=== PATIENT | male | born 1945 | race Caucasian/White ===

== ENCOUNTER → 2018-07-18 | Outpatient (CLI) | payer MEDICARE ==
[2015-08-17 12:00] VITALS: BP 124/74
[~2018-07-18] MED LIST: ASPI-612 PO; CARB15DR3 EACHEYE; DOCU-109 PO; ERTA1VIA IJ; LISI1TAB5 PO; METO25TA4 PO; MULT1TAB52 PO; OXYC1TAB7 PO; PRAV10TA2 PO
--- NOTE | 2018-07-18 09:53 | RAD ---
MR#: [id number] Date of Study: 07/18/2018 Ordering Physician: SANTIAGO RUANO, Referring Physician: SANTIAGO RUANO, Tech: Brandi Cantrell RDMS, RVT, RTR APPROVED REPORT Patient Location: OUT-PATIENT Indications AAA Duplex Results A/PTransverseLongitudinal Proximal Aorta 1.9cm2.3cm Mid Aorta 2.1cm2cm Distal Aorta 4.0cm4cm Rt. Common Iliac Artery1.29cm Lt. Common Iliac Artery 1.3cm Doppler VelocityWaveform Proximal Aorta 88.3 cm/sec Distal Aorta 97.0 cm/sec Rt. Common Iliac Zxiwqy483.6 cm/sec Lt. Common Iliac Artery 118.2 cm/sec Findings Technically difficult study due to bowel gas and body habitus. There is a distal infra-renal AAA that measures approximately 4 cm in greatest transverse dimension. Spectral waveforms in the aorta and velocities are grossly unremarkable. Critical Notification Critical Value: No <Conclusion> 1. Infrarenal AAA measuring 4.0 cm. Signed by : Abdon Clement, Electronically Approved : 07/18/2018 09:51:58
== END | disposition home or self-care (01) ==
LOC: US 08:43
PROVIDERS: ATTEND Internal Medicine Cardiovascular Disease
DX: I71.4 Abdominal aortic aneurysm, without rupture (principal); I10 Essential (primary) hypertension; E78.5 Hyperlipidemia, unspecified; E78.00 Pure hypercholesterolemia, unspecified; Z82.49 Family history of ischemic heart disease and other diseases of the circulatory system
CPT/HCPCS: 76770

== ENCOUNTER → 2018-10-31 | Day surgery (SDC) | payer MEDICARE ==
[~2018-10-31] VITALS: Ht 170.2 cm; Wt 86.0 kg
[~2018-10-31] MED LIST changes: +BUPIVACAINE 0.25% 50 ML VIAL. ONE; +BUPIVACAINE MPF 0.25% 30 ML VIAL. IJ ONE; +HYDROmorphone 2 MG/ML VIAL IV PRN; +IV RINGERS,LACTATED 1000ML 1,000 ML IV SCH; +LIDOCAINE 1% PF 2 ML VIAL. ID PRN; +MIDAZOLAM HCL/PF 2 MG/2 ML VIAL. ONE; +MORPHINE SULFATE 2 MG/ML VIAL. IV PRN; +ONDANSETRON PF 4 MG/2 ML VIAL. IV PRN; +PRED50TA PO; +PROCHLORPERAZINE 10 MG/2 ML VIAL. IV PRN; +PROP15DR OP; +fentaNYL PF VIAL 100 MCG/2 ML VIAL IV PRN; +fentaNYL PF VIAL 250 MCG/5 ML VIAL ONE
--- NOTE | 2018-10-31 11:06 | PDOC4 ---
Operative Note Operative Note Date: 10/31/2018 Preoperative diagnosis: Temporal arteritis Postoperative diagnosis: Same Procedure: Temporal artery biopsy right side Surgeon: Santino Specimen: Temporal artery Dictation: Patient is a 73-year-old gentleman who's had right sided headaches and jaw pain and elevated sedimentation rate concerning for arteritis. Procedure of temporal artery biopsy was explained to the patient in detail risks and benefits also discussed including bleeding infection alternatives to this procedure also discussed with the patient is seemed understandable verbal 1 written consent had a procedure performed. Patient was taken to the operating room placed in supine position and IV sedation was initiated by anesthesia once patient was brought was stated his right temporal area is prepped and draped usual sterile fashion is Betadine scrub and solution. The right temporal area was scanned with a Doppler artery was heard over this area was injected with quarter percent Marcaine plain incision was made with a 15 blade scalpel was carried down through the subcutaneous tissues electrocautery and hemostasis. Once the artery was visualized it was controlled proximally distally with mosquito clamps the section of the artery in between was excised and sent for pathology the 2 ends were controlled with silk ligatures. Wound was then closed in a single layer running 4-0 subcuticular Monocryl Mastisol Steri-Strips and island dressings were applied. Patient was awakened from his sedation taken to recovery in stable condition all sponge instrument needle awake overnight counselor status correct S1 blood loss 10 mL WHITNEY CAMARILLO MD Oct 31, 2018 11:06
--- NOTE | 2018-10-31 11:07 | DISCH ---
DISCHARGE INSTRUCTIONS Condition on Discharge Condition on Discharge: Stable Activity After Discharge Activity Instructions for Disc: Activity as tolerated Other activity instructions: May shower in 24 hours Diet after Discharge Diet after Discharge: Regular Diet Texture: Regular Contacting the DRRegino after DC Call your doctor for: If your condition worsens Follow-Up Follow up with: Dr. Camarillo in 2 weeks Treatment/Equipment after DC Adaptive Equipment Issued: None WHITNEY CAMARILLO MD Oct 31, 2018 11:07
[2018-10-31 12:20] VITALS: BP 139/70
--- NOTE | 2018-11-01 18:07 | PATHOLOGY ---
[facility] Accession Number: [id number] . 01 Material submitted: . RIGHT TEMPORAL ARTERY BIOPSY . 01 Clinical history: . Arteritis. . 02 Diagnosis: Right temporal artery biopsy: - No significant pathologic abnormalities. . ([facility]:mm; 11/01/18) [facility]/11/01/2018 . 02 Comment: There is no evidence of temporal arteritis. . ([facility]:mm; 11/01/18) . 02 Electronically signed: . Johnathan Butts MD, Pathologist NPI- [id number] . 01 Gross description: . Received in formalin labeled "Geovany Ovalles, right temporal artery biopsy" is an irregular fragment of pink-coy soft tissue measuring 0.4 x 0.3 x 0.2 cm. The specimen is submitted in toto in cassette A1 for temporal artery sectioning. ([facility] [place]; 10/31/2018) SYC/SYC . 02 Pathologist provided ICD-10: I77.6 . 02 CPT . 620350 Specimen Comment: A courtesy copy of this report has been sent to Specimen Comment: [phone], . Specimen Comment: Report sent to / DR ANDINO Performed at: 01 [facility] [address], [place], [place] [id number] MD Micheal Paz MD Phone: [phone] Performed at: 02 [facility] [place] [address] [place], [place] [id number] MD Johnathan Butts MD Phone: [phone]
== END | disposition home or self-care (01) ==
LOC: SURG 08:08
PROVIDERS: ATTEND Surgery
DX: M31.6 Other giant cell arteritis (principal); I10 Essential (primary) hypertension; K21.9 Gastro-esophageal reflux disease without esophagitis; E78.5 Hyperlipidemia, unspecified; I71.4 Abdominal aortic aneurysm, without rupture; Z90.49 Acquired absence of other specified parts of digestive tract; Z96.642 Presence of left artificial hip joint; Z98.890 Other specified postprocedural states; Z82.49 Family history of ischemic heart disease and other diseases of the circulatory system; F17.210 Nicotine dependence, cigarettes, uncomplicated
CPT/HCPCS: 37609; J0690; J2250; J3010; J3490

== ENCOUNTER → 2019-04-03 | Outpatient (CLI) | payer MEDICARE ==
[2018-10-31 12:20] VITALS: BP 139/70
[~2019-04-03] MED LIST changes: -BUPIVACAINE 0.25% 50 ML VIAL. ONE; -BUPIVACAINE MPF 0.25% 30 ML VIAL. IJ ONE; -HYDROmorphone 2 MG/ML VIAL IV PRN; -IV RINGERS,LACTATED 1000ML 1,000 ML IV SCH; -LIDOCAINE 1% PF 2 ML VIAL. ID PRN; -MIDAZOLAM HCL/PF 2 MG/2 ML VIAL. ONE; -MORPHINE SULFATE 2 MG/ML VIAL. IV PRN; -ONDANSETRON PF 4 MG/2 ML VIAL. IV PRN; -PROCHLORPERAZINE 10 MG/2 ML VIAL. IV PRN; +REGADENOSON 0.4 MG/5 ML DISP.SYRIN. IV ONE; -fentaNYL PF VIAL 100 MCG/2 ML VIAL IV PRN; -fentaNYL PF VIAL 250 MCG/5 ML VIAL ONE
--- NOTE | 2019-04-03 09:15 | CARD ---
MR#: [id number] Date of Study: 04/03/2019 Ordering Physician: SANTIAGO RUANO, Referring Physician: SANTIAGO RUANO Tech: Charity Pressley RDCS APPROVED REPORT EXAM: Two-dimensional and M-mode echocardiogram with Doppler and color Doppler. Other Information Quality : GoodHR: 55bpm Rhythm : Bradycardia INDICATION Hypertension/HCVD 2D DIMENSIONS RVDd2.9 (2.9-3.5cm)Left Atrium(2D)3.3 (1.6-4.0cm) IVSd1.0 (0.7-1.1cm)Aortic Root(2D)3.5 (2.0-3.7cm) LVDd4.6 (3.9-5.9cm)LVOT Diameter2.5 (1.8-2.4cm) PWd0.9 (0.7-1.1cm)LVDs3.3 (2.5-4.0cm) FS (%) 28.5 %SV54.8 ml LVEF(%)55.0 (>50%) M-Mode DIMENSIONS Left Atrium(MM)3.12 (2.5-4.0cm)Aortic Root3.58 (2.2-3.7cm) Aortic Valve AoV Peak Devyn.117.2cm/sAoV VTI22.2cm AO Peak GR.5.5mmHgLVOT Peak Devyn.102.0cm/s AO Mean GR.3mmHgAVA (VMAX)4.32cm2 ANNEL (VTI)4.00cm2 Mitral Valve MV E Rlpgolfk55.7cm/sMV E Peak Gr.2mmHg MV DECEL [id number] A Fxtasere88.5cm/s MV E Mean Gr.1mmHgE/A Ratio1.1 Pulmonary Valve PV Peak Ovgnvxlr33.2cm/s LEFT VENTRICLE The left ventricle is normal size. There is mild concentric left ventricular hypertrophy. The left ve ntricular systolic function is normal and the ejection fraction is within normal range. The Ejection Fraction is 55%. There is normal LV segmental wall motion. Transmitral Doppler flow pattern is abnorm al. RIGHT VENTRICLE The right ventricle is normal size. There is normal right ventricular wall thickness. The right ventr icular systolic function is normal. ATRIA The left atrium size is normal. The right atrium size is normal. The interatrial septum is intact wit h no evidence for an atrial septal defect or patent foramen ovale as noted on 2-D or Doppler imaging. AORTIC VALVE The aortic valve is mildly calcified. The aortic valve is trileaflet. Doppler and Color Flow revealed no significant aortic regurgitation. There is no significant aortic valvular stenosis. There is no a ortic valvular vegetation. MITRAL VALVE The mitral valve is normal in structure and function. There is no evidence of mitral valve prolapse. There is no mitral valve stenosis. Doppler and Color Flow revealed no mitral valve regurgitation note d. TRICUSPID VALVE The tricuspid valve is normal in structure and function. Doppler and Color Flow revealed no tricuspid valve regurgitation noted. There is no tricuspid valve prolapse or vegetation. There is no tricuspid valve stenosis. PULMONIC VALVE Doppler and Color Flow revealed no pulmonic valvular regurgitation. There is no pulmonic valvular aria nosis. GREAT VESSELS The aortic root is normal in size. The ascending aorta is normal in size. The IVC is normal in size a nd collapses >50% with inspiration. PERICARDIAL EFFUSION There is no evidence of significant pericardial effusion. Critical Notification Critical Value: No <Conclusion> The left ventricular systolic function is normal and the ejection fraction is within normal range. Th e Ejection Fraction is 55%. There is normal LV segmental wall motion. Signed by : Abdon Clement, Electronically Approved : 04/03/2019 09:15:18
--- NOTE | 2019-04-03 13:20 | RAD ---
MR#: [id number] Date of Study: 04/03/2019 Ordering Physician: SANTIAGO RUANO Referring Physician: MOHSEN GARCIA Tech: NATALY Osborne APPROVED REPORT Test Type: Pharmacological Stress Nurse/Tech: Gladys Duron R.N. Test Indications: syncope Cardiac History: smoker,htn Medications: See Electronic Medical Record Medical History: See Electronic Medical Record Resting ECG: SR Resting Heart Rate: 56 bpm Resting Blood Pressure: 108/53mmHg Pretest Chest Pain: No chest pain Nurse/Tech Notes S1S2, lungs CTA Consent: The procedure was explained to the patient in lay terms. Informed consent was witnessed. Mathew eout was entered into [employer]. History and Stress Test performed by NATALY Osborne Pharm. Details Pharmacologic stress testing was performed using 0.4mg per 5ml of regadenoson given intravenously ove r 7-10 seconds. Stress Symptoms dyspnea POST EXERCISE Reason for Termination: Infusion complete Max HR: 75 bpm Max Blood Pressure: 104/44mmHg Blood Pressure response to exercise: Normal blood pressure response during stress. Heart Rate response to exercise: wnl Chest Pain: No. Arrhythmia: No. ST Change: No. INTERPRETATION Stress EKG Conclusion: Baseline EKG showed sinus rhythm. No ischemic changes at peak stress. No arr hythmias. Imaging Protocol IMAGE PROTOCOL: Rest Tc-99m/stress Tc-99m 1 day Rest: Stress: Viability: Radiopharm.Tc99m NzawwtmkvLa20f Sestamibi Dose11.1mCi 33mCi Duration 16min. 13min. Img Date 04/03/2019 04/03/2019 Inj-Img Tshj49maj. 60min. Rest Admin Site:IV - Right AntecubitalAdministrator:NATALY Osborne Stress Admin Site: IV - Right AntecubitalAdministrator: MARAH Larios, ARRT (R)(N) STRESS DATA End Diast. Vol.68.0mlLVEDV index BSA35.0ml End Syst. Vol.19.0mlLVESV index BSA10.0ml Myocardial Noen231.0gEject. Cezzizdt64.0% Stress Scores Regional WT1.00Summed WT11.00 Regional WM0.00Summed WM3.00 Study quality was good. Left Ventricular size was Normal at Rest and Stress. Lung uptake was . Left Ventricular ejection fraction is 72%. The rest and stress images show normal perfusion, normal contraction and thickening. LV Perf. Quant 17 Seg. SSS2.00 17 Seg. SRS6.00 17 Seg. SDS0.00 Stress Defect Extent (% LAD)0.00Rest Defect Extent (% LAD)1.30Rev. Defect Extent (% LAD)0.00 Stress Defect Extent (% LCX) 17.50Rest Defect Extent (% LCX)31.30Rev. Defect Extent (% LCX)0.00 Stress Defect Extent (% RCA)0.00Rest Defect Extent (% RCA)0.00Rev. Defect Extent (% RCA)0.00 Stress Defect Extent (% LUPIS)5.00Rest Defect Extent (% LUPIS)8.70Rev. Defect Extent (% LUPIS)0.00 Conclusion 1. Regadenoson cardioisotope stress test did not show any evidence of ischemia or infarct. 2. Normal left ventricular systolic function with ejection fraction calculated at 72%. 3. Low risk for cardiac events. Signed by : Santiago Ruaon, Electronically Approved : 04/03/2019 13:20:11
== END | disposition home or self-care (01) ==
LOC: ECHO 08:33
PROVIDERS: ATTEND Internal Medicine Cardiovascular Disease
DX: I35.8 Other nonrheumatic aortic valve disorders (principal); I11.9 Hypertensive heart disease without heart failure; R00.1 Bradycardia, unspecified; Z87.891 Personal history of nicotine dependence
CPT/HCPCS: 78452; 93017; 93306; A9500; J2785

== ENCOUNTER → 2019-07-17 | Outpatient (CLI) | payer MEDICARE ==
[2018-10-31 12:20] VITALS: BP 139/70
[~2019-07-17] MED LIST changes: -REGADENOSON 0.4 MG/5 ML DISP.SYRIN. IV ONE
--- NOTE | 2019-07-17 11:31 | CARD ---
MR#: [id number] Date of Study: 07/17/2019 Ordering Physician: SANTIAGO PLASCENCIA, Referring Physician: SANTIAGO PLASCENCIA, Tech: Brandi Bailon APPROVED REPORT EXAM: Two-dimensional and M-mode echocardiogram with Doppler and color Doppler. Other Information Quality : AverageHR: 55bpm INDICATION COPD Hypertension/HCVD RISK FACTORS Hyperlipidemia Smoking 2D DIMENSIONS RVDd2.9 (2.9-3.5cm)Left Atrium(2D)2.8 (1.6-4.0cm) IVSd1.1 (0.7-1.1cm)Aortic Root(2D)3.4 (2.0-3.7cm) LVDd5.0 (3.9-5.9cm)LVOT Diameter2.3 (1.8-2.4cm) PWd0.8 (0.7-1.1cm)LVDs3.6 (2.5-4.0cm) FS (%) 29.1 %SV66.8 ml LVEF(%)55.7 (>50%) Aortic Valve AoV Peak Devyn.118.6cm/sAoV VTI24.2cm AO Peak GR.5.6mmHgLVOT Peak Devyn.79.5cm/s LVOT VTI 16.20cmAO Mean GR.3mmHg ANNEL (VMAX)2.58ed1ABK (VTI)2.74cm2 Mitral Valve MV E Rohvtiwx93.2cm/sMV DECEL FUEF385tl MV A Ahlbinra00.1cm/sMV FXW50hj E/A Ratio0.9MVA (PHT)2.67cm2 Pulmonary Valve PV Peak Omkkkejp382.7cm/sPV Peak Grad.4mmHg Tricuspid Valve TR P. Yzlcotqm348yp/sRAP HCPURCVT0dmOx TR Peak Gr.75dzXiZAMY96qdTj Pulmonary Vein S1 Kvomoaog58.9cm/sD2 Dtkmscyh73.5cm/s PVa dwwpkins534zgca LEFT VENTRICLE The left ventricle is normal size. There is borderline concentric left ventricular hypertrophy. The l eft ventricular systolic function is normal. The Ejection Fraction is 55-60%. There is normal LV segm ental wall motion. Transmitral Doppler flow pattern is Grade I-abnormal relaxation pattern. RIGHT VENTRICLE The right ventricle is normal size. There is normal right ventricular wall thickness. The right ventr icular systolic function is normal. ATRIA The left atrium size is normal. The right atrium size is normal. The interatrial septum is intact wit h no evidence for an atrial septal defect or patent foramen ovale as noted on 2-D or Doppler imaging. AORTIC VALVE The aortic valve is normal in structure and function. Doppler and Color Flow revealed no significant aortic regurgitation. There is no significant aortic valvular stenosis. MITRAL VALVE The mitral valve is normal in structure and function. There is no evidence of mitral valve prolapse. There is no mitral valve stenosis. Doppler and Color Flow revealed no mitral valve regurgitation note d. TRICUSPID VALVE The tricuspid valve is normal in structure and function. Doppler and Color Flow revealed trace tricus pid regurgitation with an estimated PAP of 20 mmHg. There is no tricuspid valve prolapse or vegetatio n. There is no tricuspid valve stenosis. PULMONIC VALVE The pulmonic valve is not well visualized. Doppler and Color Flow revealed no pulmonic valvular regur gitation. GREAT VESSELS The aortic root is normal in size. The IVC is normal in size and collapses >50% with inspiration. PERICARDIAL EFFUSION There is no evidence of significant pericardial effusion. Critical Notification Critical Value: No <Conclusion> The left ventricular systolic function is normal. The Ejection Fraction is 55-60%. There is normal LV segmental wall motion. Transmitral Doppler flow pattern is Grade I-abnormal relaxation pattern. Trace tricuspid regurgitation with an estimated PAP of 20 mmHg. There is no evidence of significant pericardial effusion. Signed by : Santiago Plascencia, Electronically Approved : 07/17/2019 11:30:40
--- NOTE | 2019-07-17 13:18 | RAD ---
MR#: [id number] Date of Study: 07/17/2019 Ordering Physician: SANTIAGO RUANO, Referring Physician: SANTIAGO RUANO Tech: Roxana Warner RVT, RDMS APPROVED REPORT Patient Location: OUT-PATIENT Indications AAA Risk Factors Hypertension Smoking Duplex Results A/PTransverseLongitudinal Proximal Aorta 2.6cm2.5cm Mid Aorta 2.2cm2.0cm Distal Aorta 3.4cm3.2cm Rt. Common Iliac Artery1.6cm1.2cm Lt. Common Iliac Artery 1.1cm1.1cm Doppler VelocityWaveform Proximal Aorta 80.4 cm/sec Aorta Mid. 91.6 cm/sec Distal Aorta 106.9 cm/sec Findings There is a small distal aortic aneurysm measuring approximately 3.4 cm in maximum dimension. Mild right common iliac artery aneurysm at 1.6 cm. Normal aortic and iliac velocities Critical Notification Critical Value: No <Conclusion> 1. Small distal aortic and common iliac aneurysm as noted above. Signed by : Abdon Clement, Electronically Approved : 07/17/2019 13:17:55
== END | disposition home or self-care (01) ==
LOC: ECHO 08:39
PROVIDERS: ATTEND Internal Medicine Cardiovascular Disease
DX: I72.3 Aneurysm of iliac artery (principal); I71.4 Abdominal aortic aneurysm, without rupture; I11.9 Hypertensive heart disease without heart failure; J44.9 Chronic obstructive pulmonary disease, unspecified
CPT/HCPCS: 76770; 93306

== ENCOUNTER → 2021-12-06 | Outpatient (CLI) | payer MEDICARE ==
[2018-10-31 12:20] VITALS: BP 139/70
[~2021-12-06] MED LIST changes: -ASPI-612 PO; +ASPI-886 PO; -ERTA1VIA IJ; +ERTA1VIA16 IJ; +LISI1TAB37 PO; -LISI1TAB5 PO; +MULT-445 PO; -MULT1TAB52 PO
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
== END ==
LOC: KCIC MRI 10:44
PROVIDERS: ATTEND Family Medicine
DX: S12.690D Other displaced fracture of seventh cervical vertebra, subsequent encounter for fracture with routine healing (principal); M47.812 Spondylosis without myelopathy or radiculopathy, cervical region; M48.8X3 Other specified spondylopathies, cervicothoracic region; M50.21 Other cervical disc displacement, high cervical region; M48.03 Spinal stenosis, cervicothoracic region; X58.XXXD Exposure to other specified factors, subsequent encounter
CPT/HCPCS: 72141